=== PATIENT | female | born 1990 | race Caucasian/White ===

== ENCOUNTER 2016-12-16 12:22 | Emergency (ER) | payer MEDICAID ==
[2016-12-16 12:25] VITALS: BP 109/63
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
[2016-12-16] MEDS ORDERED: SMZ/TMP 800/160MG TABLET. PO ONE (13:00)
[2016-12-16] MEDS ORDERED: IBUPROFEN 600 MG TABLET. PO ONE (13:00)
--- NOTE | 2016-12-16 13:24 | RAD ---
Indication injury, pain. AP oblique and lateral views of the left wrist were obtained as well as a navicular view. No bony abnormality is seen
== END 2016-12-16 13:25 | disposition home or self-care (01) ==
LOC: ER 12:22
DX: S63.502A Unspecified sprain of left wrist, initial encounter (principal); Y04.0XXA Assault by unarmed brawl or fight, initial encounter; Y93.89 Activity, other specified; Y99.8 Other external cause status; Y92.89 Other specified places as the place of occurrence of the external cause
CPT/HCPCS: 73110; 99284